=== PATIENT | male | born 1995 | race Caucasian/White ===

== ENCOUNTER 2019-08-14 09:32 | Emergency (ER) | payer SELFPAY ==
--- NOTE | 2019-08-14 10:07 | EDM.PDOC ---
ED HPI GENERAL MEDICAL PROBLEM - General Chief Complaint: General Stated Complaint: SWELLING IN FACE Time Seen by Provider: 08/14/19 09:53 - History of Present Illness INITIAL COMMENTS - FREE TEXT/NARRATIVE: Patient is a 25-year-old male presenting with right upper canine tooth discomfort. He reports that he bit into a hard stick approximately 1 week ago. He has had some persistent pain on and off since that time. It worsens with eating. He has been controlling it with Orajel and Tylenol. He is on warfarin for history of PE so cannot take NSAIDs. He has an appointment with a dentist scheduled for the day after tomorrow. However this morning he woke up with some worsening pain is and a sensation of swelling along his right face. No sensation of swelling inside his mouth no pain in his neck oropharynx no other symptoms. Symptoms appear constant though notes that the swelling somewhat improved from waking up. No radiation or other associated symptoms. Right dental Pain Score (Numeric/FACES): 2 - Related Data Allergies Allergy/AdvReac Type Severity Reaction Status Date / Time shellfish derived Allergy Anaphylactic Verified 08/14/19 09:44 Shock Home Meds: Home Meds Penicillin V Potassium 500 mg PO Q6HR 7 Days #28 tab 08/14/19 [Rx] Warfarin Sodium 5 mg PO DAILY 08/14/19 [History] Past Medical History - Past Health History Medical/Surgical History: Denies Medical/Surgical History Cardiovascular History: Reports: Blood Clots/VTE/DVT - Infectious Disease History Infectious Disease History: Reports: None - Past Surgical History HEENT Surgical History: Reports: Tonsillectomy GI Surgical History: Reports: Appendectomy Social & Family History - Family History Family Medical History: Noncontributory - Tobacco Use Smoking Status *Q: Never Smoker - Caffeine Use Caffeine Use: Reports: Coffee - Recreational Drug Use Recreational Drug Use: No ED ROS GENERAL - Review of Systems Review Of Systems: See Below Free Text/Narrative/Comment: General: No fever. Skin: No rash. Eyes: No vision problems. ENT: Per HPI Neck: No neck stiffness. Musculoskeletal: No myalgias/arthralgias. Neurologic: No headache. ED EXAM, GENERAL - Physical Exam Exam: See Below Free Text/Narrative:: General Appearance: No acute distress, appears comfortable Skin: No rash HEENT: Normocephalic/atraumatic, sclera anicteric, mucous membranes moist, patient with dental caries of the right upper canine. No focal fluctuance no sign of intraoral abscess no submental or sublingual swelling no lower mouth findings no objective facial swelling no facial warmth or erythema Neck: Normal range of motion Back: Normal Musculoskeletal: No edema or tenderness Neurologic: Awake, alert, no obvious deficits, moving all extremities Psychiatric: Appropriate, cooperative Course - Vital Signs Last Recorded V/S: Last Vital Signs Temp 97.4 F 08/14/19 09:45 Pulse 78 08/14/19 09:45 Resp 18 08/14/19 09:45 BP 133/83 08/14/19 09:45 Pulse Ox 97 08/14/19 09:45 Departure - Departure Time of Disposition: 10:08 Disposition: Home, Self-Care 01 Condition: Good Clinical Impression: Pain, dental - Discharge Information *PRESCRIPTION DRUG MONITORING PROGRAM REVIEWED*: Not Applicable *COPY OF PRESCRIPTION DRUG MONITORING REPORT IN PATIENT NANCY: Not Applicable Prescriptions: Penicillin V Potassium 500 mg PO Q6HR 7 Days #28 tab Instructions: Dental Abscess, [id number] Referrals: PCP,None [Primary Care Provider] - Forms: ED Department Discharge Additional Instructions: You do not have a dental abscess yet. However, I worry that 1 may be developing. For this reason we are going to start you on penicillin. It is very important you keep your appointment with the dentist on Friday. The following information is given to patients seen in the emergency department who are being discharged to home. This information is to outline your options for follow-up care. We provide all patients seen in our emergency department with a follow-up referral. The need for follow-up, as well as the timing and circumstances, are variable depending upon the specifics of your emergency department visit. If you don't have a primary care physician on staff, we will provide you with a referral. We always advise you to contact your personal physician following an emergency department visit to inform them of the circumstance of the visit and for follow-up with them and/or the need for any referrals to a consulting specialist. The emergency department will also refer you to a specialist when appropriate. This referral assures that you have the opportunity for follow-up care with a specialist. All of these measure are taken in an effort to provide you with optimal care, which includes your follow-up. Under all circumstances we always encourage you to contact your private physician who remains a resource for coordinating your care. When calling for follow-up care, please make the office aware that this follow-up is from your recent emergency room visit. If for any reason you are refused follow-up, please contact the [facility] Emergency Department at and asked to speak to the emergency department charge nurse. Sepsis Event Note - Evaluation Sepsis Screening Result: No Definite Risk - Focused Exam Vital Signs: Vital Signs Temp Pulse Resp BP Pulse Ox 08/14/19 09:45 97.4 F 78 18 133/83 97 Date Exam was Performed: 08/14/19 Time Exam was Performed: 10:22 - Assessment/Plan Assessment:: 23-year-old male presenting with right dental pain without signs of abscess. No sign of cellulitis no sign of abnormal intraoral swelling. Would cover with penicillin VK. Patient already has dental follow-up scheduled for the day after tomorrow. We discussed dental block or [place] for pain. He states that he feels like he can manage it with Tylenol and with Orajel. He has been taking the Orajel just once nightly and has not been overusing it. Return precautions were discussed and understood penicillin prescription was sent to his local pharmacy. No signs of facial cellulitis no sign of deep space infection and again no sign of dental abscess at this time.
== END 2019-08-14 10:30 | disposition home or self-care (01) ==
LOC: MW.ED 09:32
DX: K02.9 Dental caries, unspecified (principal)
CPT/HCPCS: 99282

== ENCOUNTER 2020-04-09 04:33 | Emergency (ER) | payer OTHER, BC ==
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
[2020-04-09 05:31] LABS: BLOOD UREA NITROGEN,BUN 8 mg/dL (7.0-18.0); CARBON DIOXIDE,CO2 27.9 mmol/L (21.0-32.0); CHLORIDE,CL 105 mmol/L (98-107); GLUCOSE RANDOM 92 mg/dL (74-106); POTASSIUM,K 3.9 mmol/L (3.5-5.1); SODIUM,NA 140 mmol/L (136-148)
--- NOTE | 2020-04-09 05:40 | CT ---
Indication: Trauma, heavy object fell on head, anticoagulated on warfarin Technique: Nonenhanced axial CT imaging through the head. Sagittal and coronal reconstructions are provided. Comparison: None Findings: There is no intracranial hemorrhage, edema, or mass effect. There is normal attenuation of the brain parenchyma. The ventricles are normal in size. The basal cisterns are patent. The calvarium is intact. The mastoid air cells are aerated. There is moderate left maxillary sinus mucosal thickening. Remainder of the paranasal sinuses are clear. Impression: No acute intracranial process. Please note that all CT scans at this facility use dose modulation, iterative reconstruction, and/or weight-based dosing when appropriate to reduce radiation dose to as low as reasonably achievable. Dictated by Danuta Mcwilliams MD @ Apr 09 2020 5:36AM Signed by Dr. Danuta Mcwilliams @ Apr 09 2020 5:39AM
== END 2020-04-09 05:55 | disposition home or self-care (01) ==
LOC: MW.ED 04:33
DX: S09.90XA Unspecified injury of head, initial encounter (principal); Z91.013 Allergy to seafood; Z79.01 Long term (current) use of anticoagulants; Z90.49 Acquired absence of other specified parts of digestive tract; X58.XXXA Exposure to other specified factors, initial encounter
CPT/HCPCS: 36415; 70450; 70450-26; 80048; 80307; 85025; 85610; 85730; 99284; 99284-25